=== PATIENT | female | born 1990 | race Caucasian/White ===

== ENCOUNTER 2023-06-27 11:34 | Outpatient (CLI) | payer OTHER | END 2023-06-27 11:35 | disposition home or self-care (01) | LOC: LAB 11:34 | PROVIDERS: ATTEND Nurse Practitioner Obstetrics & Gynecology | DX: N96 Recurrent pregnancy loss (principal) | CPT/HCPCS: 36415; 84144 ==

== ENCOUNTER 2023-06-30 14:19 | Outpatient (CLI) | payer OTHER | END 2023-06-30 14:20 | disposition home or self-care (01) | LOC: LAB 14:19 | PROVIDERS: ATTEND Nurse Practitioner Obstetrics & Gynecology | DX: N96 Recurrent pregnancy loss (principal) | CPT/HCPCS: 36415; 84144 ==

== ENCOUNTER 2023-10-12 12:48 | Outpatient (CLI) | payer OTHER | END 2023-10-12 12:49 | disposition home or self-care (01) | LOC: LAB 12:48 | PROVIDERS: ATTEND Nurse Practitioner Obstetrics & Gynecology | DX: N96 Recurrent pregnancy loss (principal) | CPT/HCPCS: 36415; 84144 ==

== ENCOUNTER 2023-10-15 14:32 | Outpatient (CLI) | payer OTHER | END 2023-10-15 14:33 | disposition home or self-care (01) | LOC: LAB 14:32 | PROVIDERS: ATTEND Nurse Practitioner Obstetrics & Gynecology | DX: N96 Recurrent pregnancy loss (principal) | CPT/HCPCS: 36415; 84144 ==